=== PATIENT | female | born 1980 | race Caucasian/White ===

== ENCOUNTER 2024-02-15 08:35 | Outpatient (CLI) | payer OTHER, SELFPAY ==
--- OUTSIDE RECORDS SUMMARY | 2024-02-17 13:43 | XMS_ITS | Clinical Summary ---
[facility] [id number] [place] [address] Care Team Providers Care Preflight Inspector Name Role Phone Orlando Dumas MD Primary Care Provider [phone] Source Comments You are receiving this document as you are listed as the primary care provider,follow-up provider, or the patient has been referred to you for consultation.This is in compliance with the Medicare and[facility] EHR Incentive Program,which states Providers who transition their patient to another setting of careor provider of care or refers their patient to another provider of care shouldprovide summary care record for each transition of care or referral. MENABANQER Allergies Active Allergy Reactions Criticality Noted Date Comments Penicillins Rash 03/27/2021 Medications Medication Sig Dispensed Refills Start Date End Date Status methylPREDNISolone (MEDROL 21 TABLET DOSEPACK) 4 MG tabletIndications:A rthralgia, unspecified joint,Myalgia Take as directed 21 Tablet 06/18/2022 Active Additional Information Patient not taking.Reported on 08/20/2022 Resolved Problems Problem Noted Date Diagnosed Date Resolved Date Pap smear for cervical cancer screening 03/12/2021 08/20/2022 Overview (06/11/2022): 03/2021 NIL/HPV Negative. PLAN: HPV testing due 03/2026 Immunizations Name Administration Dates Next Due HepA, Unspecified Formulation 08/17/2003 HepB, Unspecified Formulation 08/17/2003 Influenza IIV4 (Quadrivalent) 0.5mL (28196) 01/11 Liliana COVID-19 Vaccine 07/20/2020 MMR 10/18/1989 Moderna Monovalent 12+ 03/27/2021 Tdap 04/02/2014,07/27/2007 Social History Tobacco Use Types Packs/Day Years Used Date Smoking Tobacco: Never Smokeless Tobacco: Never Tobacco Cessation:Counseling Given: Not Answered Alcohol Use Standard Drinks/Week Comments Yes 0 (1 standard drink = 0.6 oz pur e alcohol) occ PHQ-2 Answer Date Recorded PHQ-2 Score 0 08/20/2022 Financial Resource Strain Answer Date R ecorded Is it hard for you to pay fo r the very basics like food, housing, medical care or heating? No 08/20/2022 Food Insecurity Answer Date Recorded Does your food run out before you have the money to buy more? No 08/20/2022 Transportation Needs Answer Date Record ed Does a lack of transportatio n keep you from your medical appointments or from getting your medications? No 023 Sex and Gender Information Value Date Recorded Sex Assigned at Not on file Gender Identity Not on file Sexual Orientation Not on file Last Filed Vital Signs Vital Sign Reading Time Taken Comments Blood Pressure 124/76 08/20/2022 8:44 AM CDT Pulse 90 08/20/2022 8:44 AM CDT Temperature 37.1 ??C (98.7 ??F) 08/20/2022 8:44 AM CD T Respiratory Rate 16 06/12/2022 10:47 AM DIRECTOR [employer]ITY Oxygen Saturation 100% 06/12/2022 10:47 AM [employer] Inhaled Oxygen Concentration - - Weight 57.7 kg (127 lb 3.2 oz) 08/20/2022 8:44 A M CDT Height 167.5 cm (5' 5.95) 08/20/2022 8:44 AM CD T Body Mass Index 20.56 08/20/2022 8:44 AM CDT Plan of Treatment Health Maintenance Due Date Last Done Comments Hep C Screening (Preventive Services) 1981 HIV Screening (Preventive Services) 1997 HepB (2) 09/14/2003 08/17/2003 Mammogram 09/29/2023 09/28/2022 COVID-19 Vaccine ( season) 2023 03/27/2021, 07/20/2020 Influenza (#1) 2023 01/29/2021, 02/10, 01/29/2015, Additional history exists DTaP/Tdap/Td (3 - Tdap) 04/02/2024 04/02/2014, 07/26 Adult Preventive Visit 08/20/2024 08/20/2022 Cervical Cancer Screening 03/27/2026 03/27/2021 (Com pleted) Zoster/Shingles (1 of 2) 07/26/2031 HepA Aged Out 08/17/2003 No longer eligi ble based on patient's age to complete this topic HPV Vaccine Aged Out No longer eligi ble based on patient's age to complete this topic Hib Aged Out No longer eligi ble based on patient's age to complete this topic IPV (Polio) Aged Out No longer eligi ble based on patient's age to complete this topic RSV Aged Out No longer eligi ble based on patient's age to complete this topic MCV4 Aged Out No longer eligi ble based on patient's age to complete this topic Pneumococcal Aged Out No longer eligi ble based on patient's age to complete this topic Procedures Procedure Name Priority Date/Time Associated Diagnosis Comments MM MAMMOGRAM SCREENING BILAT W CAD Routine 09/28/2022 1:14 PM CDT Encounter for screening for malignant neoplasm of breast, unspecified screening modality from Last 3 Months or Most Recently Relevant to Health Maintenance Results * MM Mammogram Screening Bilat W CAD (09/28/2022 1:14 PM CDT) Anatomical Region Laterality Modality Breast Bilateral Mammography Impressions 09/29/2022 10:03 AM CDT : ACR BI-RADS Category 1: Negative RECOMMENDATION: Follow Up Imaging in 12 months - Bilateral The results and recommendations of this examination will be communicated to the patient. Narrative 09/29/2022 10:03 AM CDT MM MAMMOGRAM SCREENING BILAT W CAD performed on 09/28/22 No comparisons were made when reading this study. ??Baseline. FINDINGS: Bilateral screening mammogram was performed with the assistance of Computer-Aided Detection . The breasts are extremely dense, which lowers the sensitivity of mammography. There is no radiographic evidence of malignancy. ?? Orlando Dumas MD RAD MARCIAL from Last 3 Months or Most Recently Relevant to Health Maintenance Care Teams Preflight Inspector Relationship Specialty Start Date End Date Orlando Dumas MD [address] [place] [address] PCP - General Family Practice 08/20/22
== END 2024-02-15 08:36 | disposition home or self-care (01) ==
LOC: NFLDREF 02-17 13:42
PROVIDERS: PCP Family Medicine; Referring Provider Family Medicine; Visit Provider Family Medicine
DX: Z13.220 Encounter for screening for lipoid disorders (principal); Z13.1 Encounter for screening for diabetes mellitus
CPT/HCPCS: 80061; 82947

== ENCOUNTER 2024-05-19 14:53 | Outpatient (CLI) | payer OTHER, SELFPAY ==
--- NOTE | 2024-05-19 15:00 | CRLHL7_ITS ---
For Patients: As a result of the Century Cures Act, medical imaging exams and procedure reports are released immediately into your electronic medical record. You may view this report before your referring provider. If you have questions, please contact your health care provider. BILATERAL SCREENING MAMMOGRAM WITH COMPUTER-AIDED DETECTION AND TOMOSYNTHESIS TECHNIQUE: CC and MLO views were obtained. These mammographic images have been obtained using full-field digital technique. These mammographic images were interpreted with the benefit of computer-aided detection. Breast Tomosynthesis was used in this interpretation. COMPARISON FILM: Baseline. No priors available. FINDINGS: The breasts are heterogeneously dense, which may obscure small masses. IMPRESSION: There is no radiographic evidence for malignancy. ASSESSMENT: BI-RADS Category 1: Negative RECOMMENDATION: Routine screening mammogram in 1 year. A lay language report of this examination will be provided to the patient. Vance Snyder M.D. Diagnostic Radiologist [email or web address] SP/Dictated by: Vance Snyder MD @ 06/05/2024 8:11:00 AM (Electronically Signed)
== END 2024-05-19 14:54 | disposition home or self-care (01) ==
LOC: MAMMO 14:53
PROVIDERS: PCP Family Medicine; Visit Provider Family Medicine
DX: Z12.31 Encounter for screening mammogram for malignant neoplasm of breast (principal); R92.333 Mammographic heterogeneous density, bilateral breasts
CPT/HCPCS: 77063; 77067